=== PATIENT | female | born 1945 | race Caucasian/White ===

== ENCOUNTER → 2018-05-20 | Day surgery (SDC) | payer OTHER ==
--- OUTSIDE RECORDS SUMMARY | 2018-05-20 09:33 | XMS REPORT ---
:1945 Author Organization [employer] Care Team Providers Name Role Phone Martinez, Na Provider Role Unavailable Allergies, Adverse Reactions, Alerts Substance Reaction Event Type penicillin Info Not Available Drug Allergy Problems Problem Type Condition Code Onset Dates Condition Status Problem Personal history of other diseases Z87.39 Active of the musculoskeletal system and connective tissue Problem Goiter E04.9 Active Problem Personal history of poliomyelitis Z86.12 Active Problem Depression F32.9 Active Assessment Personal history of poliomyelitis Z86.12 Active Problem Screening for osteoporosis Z13.820 Active Problem Hypertension I10 Active Problem Mixed hyperlipidemia E78.2 Active Problem Other chronic pain G89.29 Active Problem Low back pain M54.5 Active Problem Family history of breast cancer Z80.3 Active Assessment Screening mammogram, encounter for Z12.31 Active Assessment Other chronic pain G89.29 Active Assessment Personal history of other diseases Z87.39 Active of the musculoskeletal system and connective tissue Assessment Screening for osteoporosis Z13.820 Active Assessment Mixed hyperlipidemia E78.2 Active Assessment Depression F32.9 Active Assessment Low back pain M54.5 Active Assessment Hypertension I10 Active Assessment Goiter E04.9 Active Problem Screening mammogram, encounter for Z12.31 Active Medications Medication Code System Code Instructions Start End Date Status Dosage Date Zestoretic [facility] 12571748615 20-25 MG Active 1 EACH ONCE A DAY ORALLY Celexa [facility] 25999467736 40 MG Orally Once Active 1 tablet a day Lisinopril [facility] 93785204888 20 MG Orally Once Active 1 tablet a day Results No Known Results Summary Purpose [employer] Submission
--- OUTSIDE RECORDS SUMMARY | 2018-05-20 09:34 | XMS REPORT ---
:1945 Author Organization [employer] Care Team Providers Name Role Phone Martinez, Na Provider Role Unavailable Allergies No Known Allergies Problems Problem Type Condition Code Onset Dates Condition Status Problem Personal history of other diseases Z87.39 Active of the musculoskeletal system and connective tissue Problem Goiter E04.9 Active Problem Personal history of poliomyelitis Z86.12 Active Assessment Screening mammogram, encounter for Z12.31 Active Problem Screening mammogram, encounter for Z12.31 Active Problem Depression F32.9 Active Problem Screening for osteoporosis Z13.820 Active Problem Hypertension I10 Active Problem Mixed hyperlipidemia E78.2 Active Problem Other chronic pain G89.29 Active Problem Low back pain M54.5 Active Problem Family history of breast cancer Z80.3 Active Medications No Known Medications Results No Known Results Summary Purpose [employer] Submission
--- OUTSIDE RECORDS SUMMARY | 2018-05-20 09:34 | XMS REPORT ---
[...] poliomyelitis Z86.12 Active Problem Depression F32.9 Active Problem Screening for osteoporosis Z13.820 Active Problem Hypertension I10 Active Problem Mixed hyperlipidemia E78.2 Active Problem Other chronic pain G89.29 Active Problem Low back pain M54.5 Active Problem Family history of breast cancer Z80.3 Active Assessment Hypertension I10 Active Assessment Goiter E04.9 Active Problem Screening mammogram, encounter for Z12.31 Active Medications Medication Code System Code Instructions Start End Date Status Dosage Date Zestoretic [facility] 81102958206 20-25 MG Active 1 EACH ONCE A DAY ORALLY Lisinopril [facility] 99552238772 20 MG Orally Once Active 1 tablet a day Celexa [facility] 06928672551 40 MG Orally Once Active 1 tablet a day Results No Known Results Summary Purpose [employer] Submission
--- OUTSIDE RECORDS SUMMARY | 2018-05-20 09:34 | XMS REPORT ---
:1945 Author Organization [employer] Care Team Providers Name Role Phone Martinez, Na Provider Role Unavailable Allergies No Known Allergies Problems Problem Type Condition Code Onset Dates Condition Status Problem Personal history of other diseases Z87.39 Active of the musculoskeletal system and connective tissue Problem Goiter E04.9 Active Problem Personal history of poliomyelitis Z86.12 Active Problem Screening mammogram, encounter for Z12.31 [...]
--- OUTSIDE RECORDS SUMMARY | 2018-05-20 09:34 | XMS REPORT ---
:1945 Author Organization [employer] Care Team Providers Name Role Phone Martinez, Na Provider Role Unavailable Allergies No Known Allergies Problems Problem Type Condition Code Onset Dates Condition Status Problem Personal history of other diseases Z87.39 Active of the musculoskeletal system and connective tissue Problem Goiter E04.9 Active Problem Personal history of poliomyelitis Z86.12 Active Assessment Hyperglycemia R73.9 Active Problem Screening mammogram, encounter for Z12.31 [...]
--- NOTE | 2018-05-20 11:15 | RAD REPORT ---
EXAM DESCRIPTION: US - Guided FNA Non Breast - 05/20/2018 10:40 am CLINICAL HISTORY: E04.2 COMPARISON: No comparisons FINDINGS: Preoperative diagnosis: Right thyroid goiter/nodule. Post operative diagnosis: Same. Conscious Sedation: None Fluoroscopy time: None Contrast used: None Estimated blood loss: Minimal Specimens:5 x 25 gauge FNA specimens The right neck was prepped and draped in the usual sterile fashion. 1% lidocaine was infiltrated into the subcutaneous tissues for local anesthesia. Real time ultrasound scanning of the multiple nodules in the right lobe of the thyroid. The largest solid nodule was identified measuring 2.0 x 1.4 x 1.4 cm. This nodule contains small calcifications an was selected for FNA procedure given its sonographic appearance. Under ultrasound guidance, using several 25 gauge needles, 5 specimens were obtained of this lesion and sent to pathology for evaluation. There were no complications. IMPRESSION: Successful ultrasound-guided right thyroid nodule FNA procedure.
== END ==
LOC: FNA 09:31
PROVIDERS: ATTEND Otolaryngology
PROC: 0G9H3ZX Drainage of Right Thyroid Gland Lobe, Percutaneous Approach, Diagnostic (ICD-10-PCS; principal; 2018-05-20)
DX: E04.2 Nontoxic multinodular goiter (principal)
CPT/HCPCS: 88162